=== PATIENT | female | born 1940 | race Caucasian/White ===

== ENCOUNTER 2018-01-17 07:43 | Day surgery (SDC) | payer MEDICARE ==
--- NOTE | 2018-01-17 09:04 | CP.SDSHP ---
Same Day Surgery H & P - History Proposed Procedure: colonoscopy Pre-Op Diagnosis: h/o colon polyps - Previous Medical/Surgical History Cardiac: Other (hyperlipidemia, ) Misc: Other (osteoporosis, colon polyps, diverticulosis) Previous Surgical History: Left shoulder surgery - Allergies Allergies: Allergies No Known Allergies Allergy (Verified 01/17/18 08:05) - Physical Exam Vital Signs: Vital Signs 01/17/18 08:06 Temperature 97.5 F L Pulse Rate 80 Respiratory 20 Rate Blood Pressure 156/90 H O2 Sat by Pulse 100 Oximetry Mental Status: Alert & Oriented x3 Neuro: WNL Heart: WNL Lungs: WNL GI: WNL - Impression Impression: h/o colon polyps Pt. Evaluated Today:Candidate for Anesthesia & Procedure: Yes - Date & Time Date: 01/17/18 Time: 09:04 Short Stay Discharge - Short Stay Discharge Admitting Diagnosis/Reason for Visit: DIVERTICULITIS OF LARGE, H/O COLON POLYPS Disposition: HOME/ ROUTINE
[2018-01-17] MEDS ORDERED: Propofol 10 mg/ml Inj (20 ML) ONE (09:43)
[2018-01-17 10:14] VITALS: TEMP 97
[2018-01-17 10:23] VITALS: O2SAT 100
[2018-01-17 10:54] VITALS: BP 136/76; PULSE 88; RESP 14
== END 2018-01-17 11:05 | disposition home or self-care (01) ==
LOC: C.ENDO 07:43
PROVIDERS: ATTEND Internal Medicine Gastroenterology
DX: K62.1 Rectal polyp (principal); K57.30 Diverticulosis of large intestine without perforation or abscess without bleeding; Z86.010 Personal history of colon polyps; E78.5 Hyperlipidemia, unspecified; M81.0 Age-related osteoporosis without current pathological fracture; K64.1 Second degree hemorrhoids
CPT/HCPCS: 45380; 88305; J2704